=== PATIENT | male | born 1940 | race Caucasian/White ===

== ENCOUNTER 2017-05-29 20:24 | Emergency (ER) | payer OTHER ==
--- NOTE | 2017-05-29 20:32 | PDOC ---
History of Present Illness - General History Source: Patient Exam Limitations: No Limitations - History of Present Illness Initial Comments: 05/29/17 21:08 Patient is a 77 year old male with a significant past medical history of who presents to the ED with complaints of a rash within his buttocks that began 3 days ago. Patient reports sudden onset of rash within his buttocks that began 3 days and has showed no signs of relief. Patient reports the rash intensifies with increased itching at night rather than during the day. He reports sweating and hot areas increasing the itching and intensity of the rash. Patient reports having this rash before, stating that before he let the rash take its course. Patient states he returned from [address] [employer] road trip 2 weeks ago. Patient reports taking cortisone and johnny for rash with temporary minimal relief. Denies dysuria, constipation, diarrhea. Denies fever, chills. Denies nausea, vomiting. Denies any other symptoms. Allergies: Penicillin. Social history: No smoking. No alcohol. No Surgical history: Trabeculectomy. Hernia surgery. PMD: Dr. Jim Adult Review of Symptoms. General: No fevers or chills, no weakness, no weight loss HEENT: No change in vision. No sore throat, No ear pain CardioVascular: No chest pain or shortness of breath Respiratory:No cough, or wheezing. Gastrointestinal: no nausea, vomiting, diarrhea or constipation, No rectal bleeding Genitourinary: No dysuria, hematuria, or frequency Musculoskeletal: No joint or muscle pain or swelling Neurologic: No headache, vertigo, dizziness or loss of consciousness Psychiatric: nor depression Skin: +Rash on buttocks No easy bruising Endocrine: no increased thirst or abnormal weight change Allergic: no skin or latex allergy All other systems reviewed and normal Basic Physical Exam GENERAL: The patient is awake, alert, and fully oriented, in no acute distress. HEAD: Normal with no signs of trauma. EYES: Pupils equal, round and reactive to light, extraocular movements intact, sclera anicteric, conjunctiva clear. EXTREMITIES: Normal range of motion, no edema. NEUROLOGICAL: Normal speech, normal gait. PSYCH: Normal mood, normal affect. SKIN: +Candidal rash in the area between butt cheeks. +Encompasses perianal area. +Few sattelite lesions that extend to the buttcheeks. No breakdown of skin. No discharge. Warm, Dry, normal turgor, no rashes or lesions noted. <Jose Hunter - Last Filed: 05/29/17 21:08> - General History Source: Patient Exam Limitations: No Limitations - History of Present Illness Initial Comments: 05/29/17 21:27 A portion of this note was documented by scribe services under my direction. I have reviewed the details of the note, within reason, and agree with the documentation. The case summary and management plan written by me. Assessment and plan: This is a 77-year-old male who comes in complaining of a itchy rash in the fold of his buttock cheeks. Patient said rashes intermittent and seems to be worse during periods when he sweats a lot and the hot weather. On exam and appears to be a candidal rash and patient given a prescription for nystatin cream Patient discharged will follow-up with his primary care doctor as needed <Derek Rowe I - Last Filed: 05/29/17 21:28> - General Chief Complaint: Rash Stated Complaint: ITCHING Time Seen by Provider: 05/29/17 20:29 Past History <Jose Hunter - Last Filed: 05/29/17 21:08> - Past Medical History HTN: Yes - Immunization History Immunization Up to Date: Yes - Suicide/Smoking/Psychosocial Hx Smoking History: Never smoked Have you smoked in the past 12 months: No Hx Alcohol Use: No Substance Use Type: None <Derek Rowe I - Last Filed: 05/29/17 21:28> - Past Medical History Allergies/Adverse Reactions: Allergies Allergy/AdvReac Type Severity Reaction Status Date / Time Penicillins Allergy Mild Verified 05/29/17 20:34 Home Medications: Ambulatory Orders Atenolol [Tenormin -] 25 mg PO DAILY 04/24/16 Magnesium Citrate 100 mg PO DAILY 05/29/17 Nystatin 30 gm TP TID #1 tube 05/29/17 Review of Systems - Review of Systems Able to Perform ROS?: Yes All Other Systems: Reviewed and Negative <Jose Hunter - Last Filed: 05/29/17 21:08> *Physical Exam - Vital Signs Last Vital Signs Temp Pulse Resp BP Pulse Ox 97.6 F 58 L 15 149/87 96 05/29/17 20:26 05/29/17 20:26 05/29/17 20:26 05/29/17 20:26 05/29/17 20:26 <Jose Hunter - Last Filed: 05/29/17 21:08> *DC/Admit/Observation/Transfer - Attestations Scribe Attestion: 05/29/17 21:09 Documentation prepared by Jose Hunter, acting as medical van driver for Derek Rowe MD/DO. <Jose Hunter - Last Filed: 05/29/17 21:08> - Discharge Dispostion Admit: No <Derek Rowe I - Last Filed: 05/29/17 21:28> Diagnosis at time of Disposition: Katie infection - Discharge Dispostion Disposition: HOME Condition at time of disposition: Good - Prescriptions Prescriptions: Nystatin 30 gm TP TID #1 tube - Referrals Referrals: Miriam Jim MD [Primary Care Provider] - - Patient Instructions Additional Instructions: Apply the nystatin cream to the area 3 times a day until the rash has resolved. Return to the emergency department immediately with ANY new, persistent or worsening symptoms. Continue any medications as previously prescribed by your physician. You should follow up with your primary doctor as soon as possible regarding today's emergency department visit. . Please make sure your doctor reviews the results of your emergency evaluation. Thank you for coming to the Emergency Department today for your care. It was a pleasure to see you today. Please note that your evaluation is INCOMPLETE until you follow-up with your doctor.
[2017-05-29 20:41] VITALS: BP 149/87; PULSE 58; TEMP 97.6; BMI 23.4
== END 2017-05-29 21:08 | disposition home or self-care (01) ==
LOC: FER 20:24
DX: B37.9 Candidiasis, unspecified (principal); I10 Essential (primary) hypertension
CPT/HCPCS: 99281-25

== ENCOUNTER 2022-04-02 18:36 | Emergency (ER) | payer OTHER ==
[2022-04-02 18:53] VITALS: BP 152/88; PULSE 71; RESP 20; TEMP 98.5; BMI 22.1
[2022-04-02 19:25] LABS: CALCIUM 9.1 mg/dl (8.5-10); CREATININE 1.4 mg/dl (0.55-1.3)
[2022-04-02] MEDS ORDERED: KETOROLAC TROMETHAMINE 30 MG/1 ML VIAL IVPUSH ONE (20:13)
== END 2022-04-02 19:46 | disposition left against medical advice (07) ==
LOC: FER 18:36
PROC: 3E0333Z Introduction of Anti-inflammatory into Peripheral Vein, Percutaneous Approach (ICD-10-PCS; principal; 2022-04-02)
DX: E87.5 Hyperkalemia (principal)
CPT/HCPCS: 36415; 80048; 99284-25